=== PATIENT | male | born 1995 | race African-American/Black ===

== ENCOUNTER 2025-10-25 03:34 | Emergency (ER) | payer OTHER, BC ==
[~2025-10-25] VITALS: Ht 182.9 cm; Wt 86.2 kg
[2025-10-25 03:46] VITALS: TEMP 36.9; O2SAT 100
[2025-10-25] MEDS: LIDOCAINE 5% PATCH TOP SCH (04:47)
[2025-10-25] MEDS: KETOROLAC 15MG/ML VIAL IM ONE (04:48)
[2025-10-25] MEDS ORDERED: NAPR-1176 MT (05:06)
[2025-10-25] MEDS ORDERED: LIDO-53 TP (05:07)
[2025-10-25] MEDS ORDERED: CYCL5TAB3 MT (05:07)
[2025-10-25 05:16] VITALS: BP 119/89; PULSE 62; RESP 14; O2SAT 100
== END 2025-10-25 05:19 | disposition home or self-care (01) ==
LOC: ER 03:34
DX: R51.9 Headache, unspecified (principal); M54.2 Cervicalgia; Z98.890 Other specified postprocedural states; Z79.1 Long term (current) use of non-steroidal anti-inflammatories (NSAID); Z88.0 Allergy status to penicillin; V89.2XXA Person injured in unspecified motor-vehicle accident, traffic, initial encounter; Y93.89 Activity, other specified; Y92.410 Unspecified street and highway as the place of occurrence of the external cause; Y99.8 Other external cause status
CPT/HCPCS: 99283; 96372; J1885